=== PATIENT | female | born 1980 | race African-American/Black ===

== ENCOUNTER 2016-10-31 09:05 | Inpatient (IN) | payer OTHER ==
[~2016-10-31] VITALS: Ht 170.2 cm; Wt 145.1 kg
[2016-10-31 09:30] VITALS: BP 135/82
[2016-10-31] MEDS ORDERED: PRENATAL GUMMI1 EACH PO (09:34)
[2016-10-31] MEDS ORDERED: FERRALET 90 TA1 EACH PO (09:36)
[2016-10-31 10:17] LABS: ABSOLUTE BASOPHIL COUNT 0 /CUMM (0.0-0.2); ABSOLUTE EOSINOPHIL COUNT 0.1 /CUMM (0.0-0.7); ABSOLUTE GRANULOCYTE CT 4.8 /CUMM (1.4-6.5); ABSOLUTE LYMPH COUNT 2.2 /CUMM (1.2-3.4); ABSOLUTE MONOCYTE COUNT 0.7 /CUMM (0.10-0.60); BASOPHIL % 0.5 % (0.0-2.0); EOSINOPHIL % 1.3 % (0-5); GRANULOCYTE % 61.2 % (42.2-75.2); HEMATOCRIT 32.5 % (37-47); MEAN CORPUSCULAR HGB 27.7 PG (27.0-31.0); MEAN CORPUSCULAR HGB CONC 33.3 G/DL (33.0-37.0); MEAN CORPUSCULAR VOLUME 83.1 FL (81.0-99.0); MEAN PLATELET VOLUME 8.4 FL (7.4-10.4); PLATELET COUNT 288 /CUMM (130-400); RBC DISTRIBUTION WIDTH 15.2 % (11.5-14.5); RED BLOOD CELL CT 3.91 /CUMM (4.20-5.40); WHITE BLOOD CELL COUNT 7.9 /CUMM (4.8-10.8)
--- NOTE | 2016-10-31 10:22 | History & Physical ---
General Information and HPI MD Statement: ` `I have seen and personally examined GABY TELLEZ and documented this H&P. The patient is a 35 year old female at [] weeks and [] days gestation who presented with a chief complaint ofSGA []Patient seen in consult at [place] delivery suggested no growth in 2 weeks fluid normal movements normal patient had a one-hour glucose test was 137 her otherr hallmarks of have been normal. 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 Medical History Respiratory: asthma Surgical History Pertinent Surgical History: non-contributory Past Family/Social History Psychosocial History Smoking Status: Former Smoker Exam & Diagnostic Data Last 24 Hrs of Vital Signs/I&O Vital Signs Date Time Temp Pulse Resp B/P Pulse O2 O2 Flow FiO2 Ox Delivery Rate 10/31 0930 135/82 Intake & Output 10/31 1600 10/31 0800 03 0000 Intake Total Output Total Balance Patient 320 lb Weight Obstetric Exam Wgt Gained During : 20 Pelvimetry: untested Dilation (cm): 0 Effacement (%): 0 Station: 0 Membranes: intact Fluid: unknown Fundal Height (cm): 36 Multiple Gestation? No Contractions: none Patient for Induction? Yes Vasquez Score Vasquez Score Response Value Cervix Position: mid-position 1 Cervix Consistency: soft 2 Cervix Effacement: 0-30% 0 Cervix Dilation: closed 0 Total 3 Physical Exam: Obese white female with glasses HEENT anicteric Lungs clear Abdomen obese gravid estimated weight 5 pounds Extremities +1 edema Labs Blood Type & Rh: B+ Antibody Screen: Negative Hct/Hgb & Platelets #1: Hct/Hgb & Platelets #2: Rubella: Immune VDRL #1: Nonreactive VDRL #2: Nonreactive HbsAg: Negative HIV #1: Negative HIV #2 Negative 1 Hr P Group B Strep: Negative Initial Ultrasound: Normal Anatomy Ultrasound: Estimated weight 5 pounds Genetic Testing: Normal genetic testing Assessment/Plan As Ranked By This Provider Problem List: 1. Core Measures/Miscellaneous Venous Thromboembolism VTE Risk Factors: Obesity, / VTE Contraindications: No Contraindications VTE Prophylaxis Ordered Inpt: Mech & Pharm VTE Diagnosis: No Beta Dung Is Beta Dung a Home Med? No Antibiotics Is Patient on Antibiotics? No
--- NOTE | 2016-10-31 19:04 | PN- Obstetrical ---
Subjective Subjective: C/O CTX Objective Last 24 Hrs of Vital Signs/I&O Vital Signs Date Time Temp Pulse Resp B/P Pulse O2 O2 Flow FiO2 Ox Delivery Rate 10/31 0930 135/82 Intake & Output 10/31 1600 10/31 0800 10/31 0000 Intake Total Output Total Balance Patient 320 lb Weight Physical Exam: PE OBESE BF ABD BS= [id number] Obstetric Exam Dilation (cm): 2 Effacement (%): 50 Station: 0 Membranes: intact Fluid: unknown Multiple Gestation? No Contractions: Q 1 MINUTE Assessment/Plan Assessment/Plan ASSESS SGA PLAN OBSERVE FORSVD PITOCIN IN AM
--- NOTE | 2016-11-01 10:18 | PN- Obstetrical ---
Subjective Subjective: NO COMPLAINTS Objective Last 24 Hrs of Vital Signs/I&O PER PSERIGEN Physical Exam: OBESE BF ABD SOFT NT EXT - EDMA Obstetric Exam Dilation (cm): 3 Effacement (%): 80 Station: 0 Membranes: AROM Fluid: clear Multiple Gestation? No Contractions: Q 8 MINUTES Assessment/Plan Assessment/Plan ASSESS TERM SGA ELEVATED BMI PLAN PITOCIN OBSEVRE FOR PLACE EPIDURAL
--- NOTE | 2016-11-01 13:46 | PN- Obstetrical ---
Subjective Subjective: PT C/O PAIN ABD SOFT NT [id number] Objective Last 24 Hrs of Vital Signs/I&O PER CHART Physical Exam: PE PLEASANT BF Obstetric Exam Dilation (cm): 4 Effacement (%): 80 Station: 0 Membranes: AROM Fluid: clear Multiple Gestation? No Contractions: Q6 MINUTES Assessment/Plan Assessment/Plan ASSESS TERM SGA PLAN PITOCIN AT 14 OBSEVERE FOR ACTIVE PHASE OF LABOR
--- NOTE | 2016-11-01 16:31 | PN- Obstetrical ---
Subjective Subjective: SLEEPING Objective Last 24 Hrs of Vital Signs/I&O PER CHART ABD OBESE Obstetric Exam Dilation (cm): 4 Effacement (%): 80 Station: 0 Membranes: AROM Fluid: clear Multiple Gestation? No Contractions: Q 6 MINUTES Assessment/Plan Assessment/Plan ASSESS FAILURE TO PROGRESS PLAN C/S
[2016-11-02 07:56] LABS: ABSOLUTE BASOPHIL COUNT 0 /CUMM (0.0-0.2); ABSOLUTE EOSINOPHIL COUNT 0.1 /CUMM (0.0-0.7); ABSOLUTE GRANULOCYTE CT 8.2 /CUMM (1.4-6.5); ABSOLUTE LYMPH COUNT 2.2 /CUMM (1.2-3.4); ABSOLUTE MONOCYTE COUNT 1.1 /CUMM (0.10-0.60); BASOPHIL % 0.3 % (0.0-2.0); EOSINOPHIL % 0.9 % (0-5); GRANULOCYTE % 70.2 % (42.2-75.2); HEMATOCRIT 28.8 % (37-47); MEAN CORPUSCULAR HGB 27.5 PG (27.0-31.0); MEAN CORPUSCULAR VOLUME 83.3 FL (81.0-99.0); MEAN PLATELET VOLUME 8.6 FL (7.4-10.4); PLATELET COUNT 272 /CUMM (130-400); RBC DISTRIBUTION WIDTH 15.4 % (11.5-14.5); RED BLOOD CELL CT 3.45 /CUMM (4.20-5.40); WHITE BLOOD CELL COUNT 11.7 /CUMM (4.8-10.8)
[2016-11-02] MEDS ORDERED: PERCOCET 5-3251 EACH PO (09:00)
[2016-11-02] MEDS ORDERED: IBUPROFEN800 M1 PO (09:00)
--- NOTE | 2016-11-02 09:04 | PN- Obstetrical ---
Subjective Subjective: NO COMPLAINTS Objective Last 24 Hrs of Vital Signs/I&O PER CHART Physical Exam: PE OBESE BLACK FEMALE VSS ABD OBESE INCISION CDI EXT _EDEMA-HOMANS LOCHIA MODERATE Obstetric Exam Dilation (cm): 0 Effacement (%): 0 Station: 0 Membranes: unknown Fluid: unknown Multiple Gestation? No Contractions: NONE Assessment/Plan Assessment/Plan ASSESS S/P C/S FOR FTD PLAN INCREASE AMBULATION
--- NOTE | 2016-11-03 10:07 | PN- Post Delivery/GYN ---
Subjective Subjective: Patient describes having a cough and and some loss of voice on and off since admission. Per mother in room, breathing is somewhat labored, however patient denies any difficulty in breathing or SOB. Pain is well controlled with oral medications. Ambulating, voiding, passing gas. Denies N/v, tolerating diet well. Lochia is minimal and improving. Minimal abdominal pain. without difficulty. Review of Systems: See above Objective Last 24 Hrs of Vital Signs/I&O Vital Signs 98.8 104 16 120/60 99% Physical Exam: Gen: Obese AAF. Comfortable though apparent labored breathing. Obvious difficulty speaking given her voice loss. Heart: RRR, S1 and S2 Lungs: Minimal wheezing and rhonchi throughout. Abdomen: Minimal TTP (expected), mostly around incision site. Incision: C/D/I with jose armando in place Ext: +1 pitting edema, no erythema or cords. Current Medications: Current Medications Sig/Jose Maria Start time Last Medication Dose Route Stop Time Status Admin Acetaminophen 650 MG Q4P PRN 11/01 1645 AC PO Bisacodyl 10 MG DAILY NEEDED PRN 11/01 1645 AC GA Diphenhydramine HCl 25 MG Q6P PRN 11/01 1645 AC IV 11/04 1646 Docusate Sodium 100 MG .STK-MED ONE 11/02 2213 DC PO 11/02 2214 Docusate Sodium 100 MG AT BEDTIME PRN 11/01 1645 AC 11/02 PO 2227 Enoxaparin Sodium 40 MG DAILY 11/03 1000 UNVr SC Guaifenesin 10 ML Q6P PRN 11/02 1900 AC 11/02 PO 2040 Hydroxyzine HCl 50 MG AT BEDTIME NEED.. 11/02 0000 AC PO 11/05 0001 Ibuprofen 800 MG .STK-MED ONE 11/02 2213 DC PO 11/02 2214 Ibuprofen 800 MG .STK-MED ONE 11/02 1653 DC PO 11/02 1654 Ibuprofen 800 MG .STK-MED ONE 11/02 1105 DC PO 11/02 1106 Ibuprofen 800 MG Q6P PRN 11/01 1645 AC 11/03 PO 0954 Ketorolac 30 MG Q6P PRN 11/01 1645 DC 11/02 Tromethamine IV 11/02 1644 0500 Lactated Ringer's 1,000 ML Q8H 11/01 1645 AC IV Magnesium Hydroxide 30 ML DAILY NEEDED PRN 11/01 1645 AC PO 11/04 1646 Morphine Sulfate 100 MG Q24H PRN 11/01 1945 AC 11/01 Sodium Chloride 48 ML IV 2120 Oxycodone/ 1 TAB Q4P PRN 11/01 1645 AC 11/03 Acetaminophen PO 0755 Oxycodone/ 2 TAB Q4P PRN 11/01 1645 AC Acetaminophen PO Phenol 2 SPRAY Q2P PRN 11/02 0200 AC EXT Senna 187 MG AT BEDTIME NEED.. 11/01 1645 AC PO Simethicone 80 MG Q6P PRN 11/02 1700 AC 11/02 PO 1703 Assessment/Plan Assessment/Plan 35 YO AAF POD # 2 s/p LTCS for AOdil 1) Overall doing well and meeting milestones Pain controlled with oral meds, will continue PRN Continue . Incision looks good. [place] to be removed after discharge. Bowel regimen. 2) URI Patient likely has upper respiratory infection that she describes started to occur prior to hospitalization. Currently on Robitussin for symptom relief Will attempt breathing treamtent this morning and see if helps with her symptoms. Given hx of asthma, may benefit from this and likely albuterol PRN. No antibiotics indicated at this time. Continue to monitor vitals closely. 3) Prophx Given obesity and postop - will continue Lovenox for DVT prophx IS to bedside Attending MD Review Statement Attending Statement Attending MD Statement: examined this patient, discussed with family, discussed with nursing
[2016-11-04] MEDS ORDERED: VENTOLIN HFA18 GM INH (08:36)
--- NOTE | 2016-11-04 08:38 | PN- Post Delivery/GYN ---
Subjective Subjective: Patient describes feeling better than yesterday. Cough still present, though describes breathing easier than yesterday. Does describes improvement with ventolin. Currently denies any difficulty in breathing or SOB. Pain is well controlled with oral medications. Ambulating well, voiding, passing gas. No BM. Denies N/v, tolerating diet well. Lochia is minimal and improving. Minimal abdominal pain. without difficulty. Review of Systems: per above Objective Last 24 Hrs of Vital Signs/I&O Vital Signs Date Time Temp Pulse Resp B/P Pulse O2 O2 Flow FiO2 Ox Delivery Rate 11/04 98.7 (Tmax 100.8 yesterday at 1600) 92 20 118/70 99% Room Air Physical Exam: Gen: Obese AAF. Ambulating across room well. Comfortable. Talking without difficulty Heart: RRR, S1 and S2 Lungs: CTAB. Abdomen: Minimal TTP (expected), mostly around incision site. Incision: C/D/I with jose armando in place Ext: +1 - +2 pitting edema, no erythema or cords. Current Medications: Current Medications Sig/Jose Maria Start time Last Medication Dose Route Stop Time Status Admin Acetaminophen 650 MG Q4P PRN 11/01 1645 AC PO Albuterol Sulfate 2 PUF Q4P PRN 11/03 1115 AC 11/03 INH 1630 Bisacodyl 10 MG DAILY NEEDED PRN 11/01 1645 AC WV Diphenhydramine HCl 25 MG Q6P PRN 11/01 1645 DC IV 11/04 1646 Docusate Sodium 100 MG .STK-MED ONE 11/03 2128 DC PO 11/03 2130 Docusate Sodium 100 MG AT BEDTIME PRN 11/01 1645 AC 11/03 PO 2133 Enoxaparin Sodium 40 MG DAILY 11/03 1000 AC 11/03 SC 1217 Guaifenesin 10 ML Q6P PRN 11/02 1900 AC 11/03 PO 2134 Hydroxyzine HCl 50 MG AT BEDTIME NEED.. 11/02 0000 AC PO 11/05 0001 Ibuprofen 800 MG .STK-MED ONE 11/03 2129 DC PO 11/03 2130 Ibuprofen 800 MG .STK-MED ONE 11/03 1542 DC PO 11/03 1543 Ibuprofen 800 MG .STK-MED ONE 11/03 0934 DC PO 11/03 0935 Ibuprofen 800 MG Q6P PRN 11/01 1645 AC 11/04 PO 0358 Lactated Ringer's 1,000 ML Q8H 11/01 1645 DC IV Magnesium Hydroxide 30 ML DAILY NEEDED PRN 11/01 1645 AC PO 11/04 1646 Morphine Sulfate 100 MG Q24H PRN 11/01 1945 DC 11/01 Sodium Chloride 48 ML IV 2120 Oxycodone/ 1 TAB Q4P PRN 11/01 1645 AC 11/04 Acetaminophen PO 0358 Oxycodone/ 2 TAB Q4P PRN 11/01 1645 AC Acetaminophen PO Patient Medication 1 UNIT ONE NR 11/03 1030 DC Teaching ED 11/03 1100 Phenol 2 SPRAY Q2P PRN 11/02 0200 AC EXT Senna 187 MG AT BEDTIME NEED.. 11/01 1645 AC PO Simethicone 80 MG Q6P PRN 11/02 1700 AC 11/02 PO 1703 Assessment/Plan Assessment/Plan 35 YO AAF POD #3 s/p LTCS for AOdil 1) Overall doing well and meeting milestones Pain controlled with oral meds, will continue PRN Continue . Incision looks good. [place] to be removed after discharge. 2) URI Patient likely has upper respiratory infection - started to occur prior to hospitalization. Now improving. [place] noted last evening, afebrile since. There are no evidence of any other nidus of infection, this is likely related to URI. Currently on Robitussin for symptom relief Ventolin helping patient with symptoms. Will plan to continue and will send home with Rx for this. No antibiotics indicated at this time. Continue to monitor vitals closely. 3) Prophx Given obesity and postop - will continue Lovenox for DVT prophx Continue bowel regimen PRN IS to bedside Patient is ok to be discharged home today. Patient and family member given instructions and precautions and voiced understanding. Attending MD Review Statement Attending Statement Attending MD Statement: examined this patient, discussed with family, discussed with nursing
--- NOTE | 2016-11-08 11:06 | Operative Report ---
Operative/Inv Procedure Report Surgery Date: 11/01/16 Name of Procedure: Primary low flap transverse section via Pfannenstiel skin incision Pre-Operative Diagnosis: Term arrest of dilatation Post-Operative Diagnosis: Same on a cervical fibroid Estimated Blood Loss: 500 Surgeon/Aquatic Physiotherapist: JENN PAYAN,NIK Crandall and Dr. Damien Fu Anesthesia: block Operative/Procedure Note Note: Seasonal patient was taken the operating room placed supine position after adequate anesthesia patient placed in dorsolithotomy position the vagina from dorsal fashion bladder was catheterized examination under anesthesia performed this point patient was returned spine position the abdomen was prepped and draped so fashion appropriate 3 minutes weighted for the prep to dry a Pfannenstiel skin incision was cut 2 finger breadths of symptoms pubis in midline carried down to rectus fascia which was cut in curvilinear fashion in either direction using a Bovie at this point the on rectus sheath was dissected off the rectus muscle the peritoneal cavity was entered high into the abdomen the low blade the Hannah was placed lower and incision the visceral peritoneum of the uterus was dissected anteriorly a bladder flap was developed patient tolerated this well in the lower uterine segment uterus was nicked entered with the back to knife dissected bluntly as well as sharply on since removed from the field the was delivered over the abdominal wall suction well until clear the cord was doubly clamped and cut and the was handed to instructional aide was waiting delivering to aid in resuscitation placenta was delivered manually noted to be intact was wiped clean to a dry last insurance free of her membranes was oversewn running locking suture was indicated interrupted [id number]' s is well at this point uses turned to abdominal cavity noted to be hemostatic the on abdomen was irrigated close amounts warm sounds were clear peritoneum was reapproximated using 20 the fascia was reprocessed and to continue sutures #1 skin was approximated jose armando after the subcutaneous tissue had been Bovie coagulated patient tolerated this well on mother and infant was transported recovery room awake alert counts correct Findings: Viable female infant three-vessel cord normal tubes and ovaries bilaterally a 5 cm cervical fibroid
--- NOTE | 2016-11-29 08:16 | Surgical Discharge Summary ---
Visit Information Visit Dates Admission Date: 10/31/16 Discharge Date: 11/04/16 History of Present Illness Chief Complaint: Intrauterine growth retardation Medical History Respiratory: asthma Surgical History Pertinent Surgical History: non-contributory Psychosocial History What is Your Primary Language? Thai Review of Systems: Uterus 13 point review of systems as stated in the [facility] Hospital Course Course Attending Physician: NIK BARAJAS MD [facility]: 35-year-old 1 para 0 at 38 weeks gestation followed by-year-old on a considered with IUGR advised for delivery secondary to nongrowth of infant serial induction with Pitocin patient progressed with arrest of labor underwent a section I did well first postoperative day tolerating clear liquid diet was out of bed second postoperative day patient was tolerating urinating freely without use of [place] oral pain medication and she was discharged home on the third postoperative day with the following physical exam she's a obese -[place] female HEENT anicteric lungs clear abdomen soft incision clean dry and intact remedies negative edema negative Homans Allergies: Coded Allergies: Penicillins (Mild, UNKNOWN 06/09/16) Disposition Summary Disposition Principal Diagnosis: Status post primary low flap transverse section for arrest of labor Additional Diagnosis: Fibroid uterus Discharge Disposition: home or self care Discharge Instructions General Discharge Information Code Status: Full Code Patient's Diet: Regular Patient's Activity: Pelvic rest nothing on the vagina for 6 weeks no heavy lifting for 6 weeks no driving for 2 weeks Follow-Up Instructions/Appts: Rachael return visit for removal jose armando 2 weeks in my office Medications at Discharge Discharge Medications: Continue taking these medications: Qft827/FA/Omega3/Dha/Fish Oil ( Gummies) 400 MCG-32.5 MG (25 MG-7.5 MG) TAB.CHEW 2 Gum ORAL DAILY Iron Carb,Gl/FA/B12/C/Docusate (Ferralet 90 Tablet) 90 MG-1 MG-12 MCG-120 MG-50 MG TABLET 1 Tablet ORAL DAILY Start taking the following new medications: Ibuprofen (Ibuprofen) 800 MG TABLET 800 Milligram ORAL EVERY SIX HOURS NEEDED as needed for UTERINE CRAMPING Qty = 30 No Refills Comments: Last Taken:11/04/16 Time:0943 Oxycodone HCl/Acetaminophen (Percocet 5-325 MG Tablet) 5 MG-325 MG TABLET 1 Tablet ORAL EVERY 4 HOURS NEEDED as needed for PAIN SCALE 4-6 (MODERATE ) Qty = 30 No Refills Comments: Last Taken:11/04/16 Time:0943 Albuterol Sulfate (Ventolin Hfa) 90 MCG HFA.AER.AD 2 Puff Inhale through mouth EVERY 4 HOURS NEEDED as needed for SHORTNESS OF BREATH Qty = 1 Refills = 1 Comments: Last Taken:11/04/16 Time:0420
== END 2016-11-04 12:30 | DRG 766 ==
LOC: GNO 09:05
PROVIDERS: ADMIT Specialist
PROC: 10D00Z1 Extraction of Products of Conception, Low, Open Approach (ICD-10-PCS; principal; 2016-11-01)
PROC: 3E0P7GC Introduction of Other Therapeutic Substance into Female Reproductive, Via Natural or Artificial Opening (ICD-10-PCS; 2016-11-01)
DX: O36.5930 Maternal care for other known or suspected poor fetal growth, third trimester, not applicable or unspecified (principal); J06.9 Acute upper respiratory infection, unspecified; O62.1 Secondary uterine inertia; Z3A.37 37 weeks gestation of pregnancy; Z37.0 Single live birth
CPT/HCPCS: GNOP; GNOS; 81001; 87086; 88307; J1580; J1650; J1885; J2175; J2270; J2405; J3490; J7120

== ENCOUNTER 2018-03-20 02:29 | Inpatient (IN) | payer OTHER ==
[~2018-03-20] VITALS: Ht 170.8 cm; Wt 148.8 kg
[~2018-03-20 02:29] MED LIST: FERRALET 90 TA1 EACH PO; IBUPROFEN800 M1 PO; PERCOCET 5-3251 EACH PO; PRENATAL GUMMI1 EACH PO; VENTOLIN HFA18 GM INH
--- NOTE | 2018-03-20 09:16 | History & Physical Pre-Op ---
General Information and HPI MD Statement: I have seen and personally examined GABY TELLEZ and documented this H&P. The patient is a 37 year old F who presented with a patient stated chief complaint of [previous section at term]. History of Present Illness: 37-year-old 2 para 1001 at 39 weeks gestation with previous section adequate care positive group B strep who presents today without rupture of membranes headache edema for repeat section.. Allergies/Medications Allergies: Coded Allergies: Penicillins (Mild, UNKNOWN 06/09/16) Past History Medical History Respiratory: asthma Surgical History Pertinent Surgical History: non-contributory Past Family/Social History Psychosocial History Smoking Status: Never Smoked Review of Systems Review of Systems: Negative review of systems as stated in HPI Exam & Diagnostic Data Last 24 Hrs of Vital Signs/I&O Intake & Output 03/20 1600 03/20 0800 03/20 0000 Intake Total Output Total Balance Patient 328 lb Weight Physical Exam: Obese black female no apparent distress HEENT anicteric Lungs clear Heart S1 and S2 Breasts symmetrical Abdomen obese estimated weight 3000 g pelvic 2 cm long extremities +1 edema negative Homans Assessment/Plan Assessment/Plan: Assessment is term previous section high BMI positive group B strep allergy to penicillin plan clindamycin anesthesia gave patient 3 g of Ancef As Ranked By This Provider Problem List: 1.
[2018-03-20 09:19] VITALS: BP 113/71
--- NOTE | 2018-03-20 09:22 | Operative Report ---
Operative/Inv Procedure Report Surgery Date: 03/20/18 Name of Procedure: Repeat low flap transverse section Via Pfannenstiel skin incision Pre-Operative Diagnosis: Term previous section Post-Operative Diagnosis: Same Estimated Blood Loss: 860 Surgeon/Brazer Electronic: Dell PAYAN,Sunita Fu Anesthesia: block Operative/Procedure Note Note: Procedure patient was seen in the operating room placed on position after adequate anesthesia patient placed in dorsolithotomy position the vagina from dorsal fashion bladder was catheterized patient was returned supine position through an timeout was performed antibiotics have been received after an adequate timeout and adequate skin testing for surgery the skin was cut through an old Pfannenstiel skin incision was carried down to rectus fascia patient tolerated that well was carried down to the rectus fascia with a Bovie hemostasis was apparent the rectus sheath was dissected bluntly as well as sharply off the rectus muscle the The peritoneum was entered bluntly and the scar tissue from the muscle was dissected sharply off of the uterus at this point the lower blade of the [place] was placed in lowering the incision the visceral peritoneum of the uterus was dissected anteriorly to develop a bladder flap at this point the uterus was entered with the back and knife dissected bluntly the was delivered over the abdominal wall suction well until clear the cord was doubly clamped cut and infant was handed to pediatricians waiting delivery room to aid in resuscitation placenta was delivered manually noted to be intact was wiped clean with 3 white dry laps to ensure is free of the dura membranes intravenous Pitocin as well as intramyometrial Pitocin was used to aid in uterine contractility which was apparent the peritoneum was reapproximated using 0 the fascia was reapproximated to continue sutures #1 the skin was reapproximated jose armando subcutaneous tissue required 2 oh for a retracted vessel at each corner hemostasis was apparent prior to skin closing sterile dressings were applied the end the case counts correct mother and infant transferred recovery room awake alert Findings: Viable female infant three-vessel cord normal tubes and ovaries bilaterally a 6 cm fibroid in the lower uterine segment on the patient's right
[2018-03-21] MEDS ORDERED: PERCOCET 5-3251 EACH PO (08:04)
[2018-03-21] MEDS ORDERED: IBUPROFEN800 M1 PO (08:04)
--- NOTE | 2018-03-21 08:08 | PN- Post Delivery/GYN ---
Subjective Subjective: NO COMPLAINTS Objective Last 24 Hrs of Vital Signs/I&O Vital Signs Date Time Temp Pulse Resp B/P B/P Pulse O2 O2 Flow FiO2 Mean Ox Delivery Rate 03/20 0919 113/71 Physical Exam: PE OBESE BF IN NAD ABD SOFT NT INCISION CDI FUNDUS FIRM NT EXT -EDEMA -HOMANS Assessment/Plan Assessment/Plan ASSESS S/P C/S PLAN CONT PPC
[2018-03-21 09:12] LABS: ABSOLUTE EOSINOPHIL COUNT 0 /CUMM (0.0-0.7); ABSOLUTE MONOCYTE COUNT 1.5 /CUMM (0.10-0.60); BASOPHIL % 0.3 % (0.0-2.0)
[2018-03-21 09:15] LABS: HEMATOCRIT 28.5 % (37-47); MEAN PLATELET VOLUME 8.4 FL (7.4-10.4)
[2018-03-21 09:21] LABS: ABSOLUTE BASOPHIL COUNT 0 /CUMM (0.0-0.2); ABSOLUTE GRANULOCYTE CT 12.1 /CUMM (1.4-6.5); ABSOLUTE LYMPH COUNT 3.5 /CUMM (1.2-3.4); EOSINOPHIL % 0.3 % (0-5); GRANULOCYTE % 70.4 % (42.2-75.2); MEAN CORPUSCULAR HGB 25.3 PG (27.0-31.0); MEAN CORPUSCULAR VOLUME 78.9 FL (81.0-99.0); PLATELET COUNT 325 /CUMM (130-400); RBC DISTRIBUTION WIDTH 14.9 % (11.5-14.5); RED BLOOD CELL CT 3.61 /CUMM (4.20-5.40)
[2018-03-21 09:24] LABS: WHITE BLOOD CELL COUNT 17.1 /CUMM (4.8-10.8)
--- NOTE | 2018-03-22 09:51 | PN- Post Delivery/GYN ---
Subjective Subjective: NO C/O Review of Systems: POS FLATUS; BREAST AND BOTTLE Objective Last 24 Hrs of Vital Signs/I&O VSS Physical Exam: FF INCISION C/D/I EXT NT Assessment/Plan Assessment/Plan S/P C/S POD2 STABLE DISCHARGE TOMORROW Problem List: 1.
== END 2018-03-23 11:40 | DRG 540 ==
LOC: SDA 02:29 → GNO 06:03 → SDA 07:00 → GNO 11:39
PROVIDERS: Specialist
PROC: 10D00Z1 Extraction of Products of Conception, Low, Open Approach (ICD-10-PCS; principal; 2018-03-20)
DX: O34.211 Maternal care for low transverse scar from previous cesarean delivery (principal); N85.8 Other specified noninflammatory disorders of uterus; Z3A.39 39 weeks gestation of pregnancy; Z37.0 Single live birth; O99.824 Streptococcus B carrier state complicating childbirth; Z88.0 Allergy status to penicillin
CPT/HCPCS: GNOS; 36415; 81001; 87086; 88307; J0690; J1200; J1650; J1885; J2765; J7120

== ENCOUNTER 2018-03-26 12:04 | Emergency (ER) | payer OTHER ==
[~2018-03-26] VITALS: Ht 170.2 cm; Wt 148.8 kg
[2018-03-26 12:08] VITALS: BP 110/74
--- NOTE | 2018-03-26 14:03 | ULTRASOUND REPORT ---
EXAMINATION: US TRIPLEX LOWER EXTREMITY, RIGHT CLINICAL INFORMATION: Right lower extremity edema COMPARISON: None TECHNIQUE: Color-flow triplex imaging with spectral analysis and compression Doppler were performed on the lower extremity. FINDINGS: Respiratory variation, normal compression and augmented flow are noted throughout the lower extremity. The visualized common femoral vein, superficial femoral vein, profunda femoral vein, popliteal vein and midcalf peroneal and posterior tibial venous segments show no evidence of deep venous thrombosis. There is no Tong's cyst. IMPRESSION: No evidence of deep venous thrombosis involving the lower extremity.
--- NOTE | 2018-03-26 14:13 | ED UPPER/LOWER EXTREMITY COMPL ---
History of Present Illness General Chief Complaint: Lower Extremity Problems Stated Complaint: SIB CBC FOR R LEG SWELLING Source: patient Exam Limitations: no limitations Vital Signs & Intake/Output Vital Signs & Intake/Output Vital Signs Date Time Temp Pulse Resp B/P B/P Pulse O2 O2 Flow FiO2 Mean Ox Delivery Rate 03/26 1208 98.2 85 20 110/74 98 Room Air Allergies Coded Allergies: Penicillins (Mild, UNKNOWN 06/09/16) Reconcile Medications Ibuprofen 800 MG TABLET 800 MG PO Q6P PRN UTERINE CRAMPING Oxycodone HCl/Acetaminophen (Percocet 5-325 MG Tablet) 5 MG-325 MG TABLET 1 TAB PO Q4P PRN PAIN SCALE 4-6 (MODERATE) Triage Note: PT SENT TO ED BY [facility] TO R/O DVT. PT IS S/P 03/[address] BARAJAS. WENT TO [facility] TODAY FOR CHECK UP AND TO HAVE JOSE ARMANDO REMOVED AND WAS FOUND TO HAVE SWELLING IN RLE. PT DENIES ANY PAIN, C/P, SOB. Triage Nurses Notes Reviewed? yes Onset: Abrupt Duration: day(s):, constant Timing: recent history Severity: moderate, severe Pain/Injury Location: Right: Hip. : No Patient currently breastfeeds: Yes HPI: 37-year-old female comes into the emergency room for further evaluation of right leg swelling. Patient reports that she had a about a week ago. She developed some swelling to her right lateral leg he days ago. She was at the childbirth center getting her jose armando removed and they want her to come in for further evaluation of swelling to the right leg. She had no preeclampsia during the . She has no symptoms otherwise. She clinically feels fine. She says that the incision site was fine according to the childbirth center and healing appropriately. (Joesph Sandoval) Past History Travel History Traveled to [place] past 21 day No Medical History Any Pertinent Medical History? see below for history Respiratory: asthma Surgical History Surgical History: non-contributory Psychosocial History What is your primary language [place] Tobacco Use: Never used Family History Hx Contributory? No (Joesph Sandoval) Review of Systems Review of Systems Constitutional: Reports: no symptoms. EENTM: Reports: no symptoms. Respiratory: Reports: no symptoms. Cardiovascular: Reports: no symptoms. Gastrointestinal/Abdominal: Reports: no symptoms. Genitourinary: Reports: no symptoms. Musculoskeletal: Reports: see HPI. Skin: Reports: no symptoms. Neurological/Psychological: Reports: no symptoms. Hematologic/Endocrine: Reports: no symptoms. Immunological: Reports: no symptoms. All Other Systems: Reviewed and Negative (Joesph Sandoval) Physical Exam Physical Exam General Appearance: well developed/nourished, mild distress Head: atraumatic Eyes: Bilateral: normal appearance. Ears, Nose, Throat: normal ENT inspection, hearing grossly normal Neck: normal inspection Cardiovascular/Respiratory: no respiratory distress Back: normal inspection Leg Right: swelling, no edema, no erythema, dorsalis pedis pule 2+ Knee Right: normal range of motion Foot Right: normal range of motion Neurologic/Tendon: normal sensation, normal motor functions, normal tendon functions, responds to pain, no evidence tendon injury, no pulse deficit Skin: intact, normal color, warm/dry (Joesph Sandoval) Progress Differential Diagnosis: contusion, dislocation, DVT, fracture, sprain, tendon injury Plan of Care: 03/26/2018 4:39:27 PM Patient clinically looks well. Patient is in no apparent distress. Nontoxic area blood pressure normal. No concern for preeclampsia. No preeclampsia during . Follow-up with PCP. Return if any other concerns. Diagnostic Imaging: Viewed by Me: Ultrasound. Discussed w/RAD: Ultrasound. Radiology Impression: PATIENT: GABY TELLEZ PRESENT AGE: 37 PATIENT ACCOUNT NO: [id number] : 82 LOCATION: [facility] ORDERING PHYSICIAN: Marianna ONEAL SERVICE DATE: 03/26/18 EXAM TYPE: US - US-UNILATERAL VENOUS DOPPLER EXAMINATION: US TRIPLEX LOWER EXTREMITY, RIGHT CLINICAL INFORMATION: Right lower extremity edema COMPARISON: None TECHNIQUE: Color-flow triplex imaging with spectral analysis and compression Doppler were performed on the lower extremity. FINDINGS: Respiratory variation, normal compression and augmented flow are noted throughout the lower extremity. The visualized common femoral vein, superficial femoral vein, profunda femoral vein, popliteal vein and midcalf peroneal and posterior tibial venous segments show no evidence of deep venous thrombosis. There is no Tong's cyst. IMPRESSION : No evidence of deep venous thrombosis involving the lower extremity. DICTATED BY: Jatinder Juarez MD DATE/TIME DICTATED:03/26/181358 DOUBLE END TENONER OPERATOR: YOSELYN DATE/TIME TRANSCRIBED:03/26/18 / 2248 CONFIDENTIAL, DO NOT COPY WITHOUT APPROPRIATE AUTHORIZATION. <Electronically signed in Other Vendor System> SIGNED BY: Jatinder Juarez MD 03/26/18 [id number] (Joesph Sandoval) Departure Departure Disposition: HOME OR SELF CARE Condition: Stable Clinical Impression Primary Impression: Right leg swelling Referrals: Kenyetta Mendoza MD (PCP/Family) Additional Instructions: Elevate her leg at home. Return if any other concerns worsening symptoms. Please go over all results of today's visit with your primary care doctor. Contact your primary care doctor to let them know you were here in the emergency room. There may be nonspecific findings which may not be related to your visit today here in the emergency room but may require further evaluation and chronic monitoring by your primary care doctor. If you had a laceration today the chance of foreign body always remains. You should follow-up with your primary care doctor for recheck in 3-5 days for a wound check. If you had an x-ray done there is a chance that a fracture could have been missed on initial read and you should follow-up with your primary care doctor for repeat x-rays if symptoms persist. If your blood pressure was elevated here in the emergency room please have rechecked by [facility] primary care doctor within the next 48. If you were prescribed a narcotic here in the emergency room or any type of controlled substances you're not allowed to drive while taking this medication or operate any type of heavy machinery. Narcotics can make you feel lightheaded dizziness nausea and can cause constipation. You may need to pickle solution maker a stool softener. Thank you for choosing [facility] emergency room. Please return to the emergency room immediately if you have any other concerns worsening of symptoms. Departure Forms: Customer Survey General Discharge Information (Joesph Sandoval) PA/LOSS PREVENTION GUARD Co-Sign Statement Statement: ED Attending supervision documentation- [] I saw and evaluated the patient. I have also reviewed all the pertinent lab results and diagnostic results. I agree with the findings and the plan of care as documented in the PA's/LOSS PREVENTION GUARD's documentation. [x] I have reviewed the ED Record and agree with the PA's/LOSS PREVENTION GUARD's documentation. [] Additions or exceptions (if any) to the PAs/LOSS PREVENTION GUARD's note and plan are summarized below: [] (Kevin Callejas DO)
== END 2018-03-26 14:18 ==
LOC: ERH 12:04
DX: M79.89 Other specified soft tissue disorders (principal)